=== PATIENT | female | born 1985 | race Caucasian/White ===

== ENCOUNTER 2021-11-01 15:41 | Emergency (ER) | payer MEDICAID ==
[~2021-11-01] VITALS: Ht 170.2 cm; Wt 61.4 kg
[2021-11-01] MEDS ORDERED: IV NORMAL SALINE 1000ML BAG 1,000 ML IV ONE (16:15)
[2021-11-01] MEDS ORDERED: KETOROLAC 30 MG/ML VIAL. IVP ONE (16:15)
[2021-11-01 16:33] LABS: BACTERIA,URINE 0 /HPF (0-FEW); RBC,URINE 0 /HPF (0-2); WBC,URINE OCC /HPF (0-4)
[2021-11-01 16:38] LABS: BASO # 0.1 x10^3/uL (0.0-0.2); BASO % 1 % (0-3); EOS # 0.5 x10^3/uL (0.0-0.7); EOS % 6 % (0-3); HEMATOCRIT 41.9 % (36.0-47.0); HEMOGLOBIN 14.2 g/dL (12.0-15.5); LYMPH # 1.9 x10^3/uL (1.0-4.8); LYMPH % 24 % (24-48); MEAN CORPUSCULAR HEMOGLOBIN 31 pg (25-35); MEAN CORPUSCULAR HGB CONC 34 g/dL (31-37); MEAN CORPUSCULAR VOLUME 92 fL (79-100); MONO # 0.7 x10^3/uL (0.0-1.1); MONO % 8 % (0-9); NEUT # 4.7 x10^3/uL (1.8-7.7); NEUT % 60 % (31-73); PLATELET COUNT 299 x10^3/uL (140-400); RED BLOOD COUNT 4.57 x10^6/uL (3.50-5.40); RED CELL DISTRIBUTION WIDTH 13.5 % (11.5-14.5); WHITE BLOOD COUNT 7.9 x10^3/uL (4.0-11.0)
[2021-11-01 16:55] LABS: CREATININE 0.8 mg/dL (0.6-1.0); GFR 80.7; POTASSIUM 4.3 mmol/L (3.5-5.1)
[2021-11-01 17:01] LABS: ALBUMIN/GLOBULIN RATIO 1.2 (1.0-1.7); TOTAL BILIRUBIN 0.4 mg/dL (0.2-1.0); TOTAL PROTEIN 7.4 g/dL (6.4-8.2)
[2021-11-01] MEDS ORDERED: MORPHINE SULFATE 4 MG/ML INJ. IVP ONE (17:15)
--- NOTE | 2021-11-01 17:32 | RAD ---
Examination: CT of the abdomen pelvis without contrast and CT lumbar spine without contrast HISTORY: History of low back pain, flank pain, history of renal colic COMPARISON: None available TECHNIQUE: Axial CT images of the abdomen pelvis were performed without contrast. Axial CT images of the lumbar spine was performed without contrast. Coronal and sagittal reformats are performed. Exposure: One or more of the following individualized dose reduction techniques were utilized for thi s examination: 1. Automated exposure control 2. Adjustment of the mA and/or kV according to patient size 3. Use of iterative reconstruction technique FINDINGS: Mild bibasilar lung atelectasis. No evidence of free air identified in the abdomen. The evaluation of the solid organs is limited due to lack of IV contrast. The evaluation of bowel is limited due to lack of oral contrast. The visualized noncontrasted liver, spleen, adrenals grossly un remarkable. The gallbladder is mildly distended. The stomach is mildly distended. The small bowel is nondilated. The appendix is normal. Feces and gas noted in the colon. Mild thickened appearance of the wall of th e descending colon with minimal surrounding fat stranding. Urinary bladder is mildly distended. Minim al stranding identified about the urinary bladder. The lumbar vertebral body heights are maintained. The bilateral facets are well aligned. Moderate int ervertebral disc height loss identified at L4-L5 vertebral level with mild to moderate disc bulge cau sing mild anterior thecal sac impression and mild to moderate bilateral neural foraminal narrowing. Multilevel mild disc bulge identified in the lumbar spine. IMPRESSION: 1. Mild thickened appearance of the wall of the descending colon with minimal surrounding fat strand ing could be due to nondistention or mild colitis. 2. Minimal stranding identified about the urinary bladder could be cystitis. Correlate with lab valu es. 3. Moderate intervertebral disc height loss identified at L4-L5 vertebral level with mild to moderat e disc bulge causing mild anterior thecal sac impression and mild to moderate bilateral neural forami nal narrowing. If symptoms persist consider follow-up MRI. Electronically signed by: Ameya Antunez MD (11/01/2021 5:29 PM) [id number]
[2021-11-01 18:27] VITALS: BP 109/72
[2021-11-01] MEDS ORDERED: IBUP-1007 PO (18:37)
[2021-11-01] MEDS ORDERED: LIDO700A21 TP (18:37)
[2021-11-01] MEDS ORDERED: PRED20TA PO (18:37)
--- NOTE | 2021-11-01 18:38 | PHYS DOC ---
Past Medical History Past Surgical History: Other Additional Past Surgical Histo: D&C Smoking Status: Current Every Day Smoker Alcohol Use: Occasionally General Adult EDM: Chief Complaint: MULTIPLE COMPLAINTS HPI: HPI: Patient is a 36-year-old female who presents to the emergency department complaining of low back pain for the past week. Patient denies back injury. Reports that she passed a kidney stone about 3 weeks ago and feels this pain is similar. However denies a thunderclap onset. Denies seeing blood in her urine. Patient denies increased urinary frequency, urinary pressure, urinary pain, burning, hematuria or other dysuria. Patient states she did take 2 325 mg bare aspirin tablets this morning when she woke up without relief and her 10 out of 10 pain. Patient states she did smoke some meth today to help with her pain and did not find any relief. Patient reports her last menstrual cycle was 5 years ago when she had her Mirena IUD placed. Patient denies taking prescription or [id number] medications at home, states she does not have a primary care physician, recently lived in [facility] and is currently traveling around in a motor home. States she is currently visiting in the [facility]. Patient denies a history of IV drug use, immunosuppression, cancers, denies num bness or tingling to her buttocks, thighs, or genitals, denies fever or chills, denies loss of bowel or bladder control, denies urinary retention. Denies traumatic injury to her back. Review of Systems: Review of Systems: 14 body systems of review of systems have been reviewed. See HPI for pertinent positives and negative responses, otherwise all other systems are negative, nonpertinent or noncontributory. Constitutional: Negative except as outlined in HPI above. Skin: Negative except as outlined in HPI above. Eyes: Negative except as outlined in HPI above. HENT: Negative except as outlined in HPI above. Respiratory: Negative except as outlined in HPI above. Cardiovascular: Negative except as outlined in HPI above. GI: Negative except as outlined in HPI above. : Negative except as outlined in HPI above. Musculoskeletal: Negative except as outlined in HPI above. Integument: Negative except as outlined in HPI above. Neurologic: Negative except as outlined in HPI above. Endocrine: Negative except as outlined in HPI above. Lymphatic: Negative except as outlined in HPI above. Psychiatric: Negative except as outlined in HPI above. Heart Score: C/O Chest Pain: No Risk Factors: Risk Factors: DM, Current or recent (<one month) smoker, HTN, HLP, family history of CAD, obesity. Risk Scores: Score 0 - 3: 2.5% MACE over next 6 weeks - Discharge Home Score 4 - 6: 20.3% MACE over next 6 weeks - Admit for Clinical Observation Score 7 - 10: 72.7% MACE over next 6 weeks - Early Invasive Strategies Current Medications: Current Medications Medications (Trade) Dose Ordered Sig/[facility] Start Time Stop Time Status Last Admin Dose Admin Ketorolac Tromethamine (Toradol 30mg Vial) 30 mg 1X ONCE 11/01/21 16:15 11/01/21 16:19 DC 11/01/21 16:41 30 MG Morphine Sulfate (Morphine Sulfate) 4 mg 1X ONCE 11/01/21 17:15 11/01/21 17:17 DC 11/01/21 17:26 4 MG Sodium Chloride 1,000 ml @ 1,000 mls/hr 1X ONCE 11/01/21 16:15 11/01/21 17:14 DC 11/01/21 16:41 1,000 MLS/HR Allergies: Allergies: Allergies Coded Allergies Type Severity Reaction Last Updated Verified No Known Drug Allergies 11/01/21 No Physical Exam: PE: Constitutional: Well developed, well nourished, no acute distress, non-toxic appearance. 36-year-old female in no apparent distress. HENT: Normocephalic, atraumatic. Eyes: Conjunctiva normal, no discharge. Neck: Normal range of motion, no stridor. Cardiovascular: No cyanosis appreciated, distal cap refill less than 2 seconds. Lungs & Thorax: Patient is in no respiratory distress, no audible adventitious lung sounds appreciated. Abdomen: Nontender, no abnormalities noted. Skin: Warm, dry, no erythema, no rash. Back: No deformities present, no skin discoloration present, there is left and right-sided CVA TTP, pain to palpation along midline lumbar spine. No muscular spasms appreciated. There is no crepitus, no deformities present. Extremities: No tenderness, no cyanosis, no clubbing, ROM intact, no edema. Patient has intact 5/5 motor strength with hip flexion, knee flexion,extension, knee adduction, plantar/dorsiflexion at the ankle, and dorsiflexion of the toe bilaterally. Neurologic: Alert and oriented X 3, normal motor function, normal sensory function, no focal deficits noted. Psychologic: Affect normal, judgement normal, mood normal. Current Patient Data: Labs: Laboratory Tests Test 11/01/21 15:56 11/01/21 16:09 11/01/21 16:32 Urine Collection Type Unknown Urine Color (Auto) Light yellow Urine Turbidity Clear Urine pH (Auto) 6.0 (<5.0-8.0) Urine Specific [place] 1.020 (1.000-1.030) Urine Protein (Auto) Negative mg/dL (Negative) Urine Glucose (Auto)(UA) Negative mg/dL (Negative) Urine Ketones (Auto) Negative mg/dL (Negative) Urine Blood (Auto) Negative (Negative) Urine Nitrite Negative (Negative) Urine Bilirubin (Auto) Negative (Negative) Urine Urobilinogen (Auto) Normal mg/dL (Normal) Urine Leukocyte Esterase (Auto) Negative (Negative) Urine RBC 0 /HPF (0-2) Urine WBC Occ /HPF (0-4) Urine Squamous Epithelial Cells Few /LPF Urine Bacteria 0 /HPF (0-FEW) Urine Mucus Slight /LPF POC Urine HCG, Qualitative Hcg negative (Negative) White Blood Count 7.9 x10^3/uL (4.0-11.0) Red Blood Count 4.57 x10^6/uL (3.50-5.40) Hemoglobin 14.2 g/dL (12.0-15.5) Hematocrit 41.9 % (36.0-47.0) Mean Corpuscular Volume 92 fL (79-100) Mean Corpuscular Hemoglobin 31 pg (25-35) Mean Corpuscular Hemoglobin Concent 34 g/dL (31-37) Red Cell Distribution Width 13.5 % (11.5-14.5) Platelet Count 299 x10^3/uL (140-400) Neutrophils (%) (Auto) 60 % (31-73) Lymphocytes (%) (Auto) 24 % (24-48) Monocytes (%) (Auto) 8 % (0-9) Eosinophils (%) (Auto) 6 % (0-3) H Basophils (%) (Auto) 1 % (0-3) Neutrophils # (Auto) 4.7 x10^3/uL (1.8-7.7) Lymphocytes # (Auto) 1.9 x10^3/uL (1.0-4.8) Monocytes # (Auto) 0.7 x10^3/uL (0.0-1.1) Eosinophils # (Auto) 0.5 x10^3/uL (0.0-0.7) Basophils # (Auto) 0.1 x10^3/uL (0.0-0.2) Sodium Level 136 mmol/L (136-145) Potassium Level 4.3 mmol/L (3.5-5.1) Chloride Level 99 mmol/L (98-107) Carbon Dioxide Level 31 mmol/L (21-32) Anion Gap 6 (6-14) Blood Urea Nitrogen 23 mg/dL (7-20) H Creatinine 0.8 mg/dL (0.6-1.0) Estimated GFR (Cockcroft-Gault) 80.7 BUN/Creatinine Ratio 29 (6-20) H Glucose Level 94 mg/dL (70-99) Calcium Level 9.0 mg/dL (8.5-10.1) Total Bilirubin 0.4 mg/dL (0.2-1.0) Aspartate Amino Transferase (AST) 27 U/L (15-37) Alanine Aminotransferase (ALT) 23 U/L (14-59) Alkaline Phosphatase 82 U/L (46-116) Total Protein 7.4 g/dL (6.4-8.2) Albumin 4.0 g/dL (3.4-5.0) Albumin/Globulin Ratio 1.2 (1.0-1.7) Laboratory Tests 11/01/21 16:32 Laboratory Tests 11/01/21 16:32 Vital Signs: Vital Signs Date Time Temp Pulse Resp B/P (MAP) Pulse Ox O2 Delivery O2 Flow Rate FiO2 11/01/21 17:27 76 131/88 (102) 97 11/01/21 17:26 14 Room Air 11/01/21 15:45 98.4 98.4 EKG: EKG: [] Radiology/Procedures: Radiology/Procedures: REASON: low back/flank pain with hx renal colic PROCEDURE: CT ABDOMEN PELVIS WO CONTRAST Examination: CT of the abdomen pelvis without contrast and CT lumbar spine without contrast HISTORY: History of low back pain, flank pain, history of renal colic COMPARISON: None available TECHNIQUE: Axial CT images of the abdomen pelvis were performed without contrast. Axial CT images of the lumbar spine was performed without contrast. Coronal and sagittal reformats are performed. Exposure: One or more of the following individualized dose reduction techniques were utilized for this examination: 1. Automated exposure control 2. Adjustment of the mA and/or kV according to patient size 3. Use of iterative reconstruction technique FINDINGS: Mild bibasilar lung atelectasis. No evidence of free air identified in the abdomen. The evaluation of the solid organs is limited due to lack of IV contrast. The evaluation of bowel is limited due to lack of oral contrast. The visualized noncontrasted liver, spleen, adrenals grossly unremarkable. The gallbladder is mildly distended. The stomach is mildly distended. The small bowel is nondilated. The appendix is normal. Feces and gas noted in the colon. Mild thickened appearance of the wall of the descending colon with minimal surrounding fat stranding. Urinary bladder is mildly distended. Minimal stranding identified about the urinary bladder. The lumbar vertebral body heights are maintained. The bilateral facets are well aligned. Moderate intervertebral disc height loss identified at L4-L5 vertebral level with mild to moderate disc bulge causing mild anterior thecal sac impression and mild to moderate bilateral neural foraminal narrowing. Multilevel mild disc bulge identified in the lumbar spine. IMPRESSION: 1. Mild thickened appearance of the wall of the descending colon with minimal surrounding fat stranding could be due to nondistention or mild colitis. 2. Minimal stranding identified about the urinary bladder could be cystitis. Correlate with lab values. 3. Moderate intervertebral disc height loss identified at L4-L5 vertebral level with mild to moderate disc bulge causing mild anterior thecal sac impression and mild to moderate bilateral neural foraminal narrowing. If symptoms persist consider follow-up MRI. Electronically signed by: Ameya Antunez MD (11/01/2021 5:29 PM) [id number] Course & Med Decision Making: Course & Med Decision Making Pertinent Labs and Imaging studies reviewed. (See chart for details) 36-year-old female, vital signs reviewed, presents emerged from concerning low back pain, patient's physical examination concerning for renal colic versus lumb ago. Will order urine test, urinalysis assay, CBC, CMP, IV normal saline, IV pain medication, CT abdomen pelvis without contrast with lumbar spine reconstruction films. Patient urine is not infected, there is no hematuria. Patient reports ongoing pain. Will give IV morphine. CT abdomen pelvis does show thickening of descending colon concerning for possible mild colitis, there is no abdominal pain in this area upon reexamination, CT scan also identifies stranding about the urinary bladder concerning for cystitis, there are no concerning signs of cystitis, there is no pain about the bladder area to palpation upon examination, the patient's urine is not infected. CT scan does show L4-L5 vertebral height loss with bulging disc, recommends MRI follow-up for persistent symptoms. Upon reevaluation of the patient, patient states she feels much better, discussed with patient follow-up with primary care soon, patient states she is not sure how much longer she will be in the [facility] as they plan to leave this evening to travel on. Discussed with patient will give area follow- up physicians and clinics to consider for primary care, discussed return to ER precautions or concerns, patient gave verbal understanding of and is amenable to ED discharge planning. Discussed with the patient all findings and diagnostic testing as well as the need to follow-up with their primary care provider for further evaluation and treatment or return to the ED if any new or worsening symptoms. Strict return precautions were also discussed at length, the patient voiced understanding and agreement with the discharge planning. The patient was nontoxic in appearance, in no apparent distress, and hemodynamically stable at the time of disposition. Keeshaon Disclaimer: Calvin Disclaimer: This electronic medical record was generated, in whole or in part, using a voice recognition dictation system. Departure Departure Impression: Primary Impression: Lumbago Qualified Codes: M54.50 - Low back pain, unspecified Additional Impression: Abnormal CT scan, lumbar spine Disposition: HOME / SELF CARE / HOMELESS Condition: GOOD Referrals: NO PCP (PCP) CRUZ MEJIA MD Patient Instructions: Back Pain, Adult Additional Instructions: You were seen today in the emergency department for pain of the low back. You had indicated a history of renal stones. Your urine did not show any signs of blood that would indicate renal stones. Your urine was not infected, you are not . The CT scan of your abdomen and pelvis were nonconcerning, the CT scan focusing on your low back did show some bulging disks. I have treated you today in the emergency department with a oral steroid, I am prescribing you oral pain medication and ongoing steroid therapy please take as directed. I am also prescribing lidocaine patches to help with the pain in your back. As we discussed, please follow-up with a primary care physician soon for ongoing management of this back pain. I have recommended a pain management physician Dr. Cruz Mejia that you may consider seeing soon, please call for an appointment. Thank you for visiting our Emergency Department. It was a pleasure taking care of you today in the emergency department and we appreciate you trusting us with your care. If any additional problems come up don't he sitate to return to visit us. Please follow up with your primary care provider so they can plan additional care if needed and know about the problem that you had. If symptoms worsen come back to the Emergency Department. Any concerning symptoms that start such as chest pain, shortness of air, weakness or numbness on one side of the body, running high fevers or any other concerning symptoms return to the ER. [facility] [address] [place] [address] [facility] [address] [place] [address] [facility] [address] [place] [address] [facility] [address] [place] [address] [facility] [address] [place] [address] [facility] [address] [place] [address] [facility] [address] [place] [address] [facility] [address] [place] [address] [facility] [address] [place] [address] [facility] [address] [place] [address] Scripts Lidocaine (Lidocaine PATCH ) 1 Each Adh..patch 1 EACH TP DAILY for FOR LOCAL PAIN, #10 PATCH 0 Refills REMOVE AFTER 12 HOURS Prov: NINFA AVENDAÑO APRN 11/01/21 Ibuprofen (IBUPROFEN) 600 Mg Tablet 600 MG PO PRN Q6HRS PRN for INFLAMMATION, #30 TAB 0 Refills Prov: NINFA AVENDAÑO APRN 11/01/21 Prednisone (PREDNISONE) 20 Mg Tablet 1 TAB PO DAILY, #15 TAB Take 2 tablets a day each day for 5 days, then reduce to 1 tablet/day for an additional 5 days. Prov: NINFA AVENDAÑO APRN 11/01/21 NINFA AVENDAÑO APRN Nov 01, 2021 18:38
[2021-11-01] MEDS ORDERED: TRIAMCINOLONE PRES.FREE 40 MG/ML VIAL. IM ONE (18:45)
== END 2021-11-01 19:25 | disposition home or self-care (01) ==
LOC: ER 15:41
DX: M54.50 Low back pain, unspecified (principal); R93.7 Abnormal findings on diagnostic imaging of other parts of musculoskeletal system; F17.200 Nicotine dependence, unspecified, uncomplicated
CPT/HCPCS: 36415; 74176; 80053; 81001; 81025; 85025; 96361; 96372; 96374; 96375; 99284; J1885; J2270; J3301; J7030